=== PATIENT | female | born 1985 | race Caucasian/White ===

== ENCOUNTER 2019-01-07 06:23 | Day surgery (SDC) | payer OTHER ==
[2018-12-26 14:36] VITALS: BMI 19.8
[2019-01-07] MEDS ORDERED: BACITRACIN 15 GM TUBE TOPICAL OINTMENT ONE (07:21)
[2019-01-07] MEDS ORDERED: LIDOCAINE 1%/EPI 1:100000 (20 ML MULTI DOSE VIAL) ONE (07:21)
[2019-01-07] MEDS ORDERED: ONDANSETRON 4 MG/2 ML VIAL ONE ×2 (07:48→09:04)
[2019-01-07] MEDS ORDERED: MIDAZOLAM HCL 2 MG/2 ML SINGLE DOSE VIAL ONE ×2 (07:56)
[2019-01-07] MEDS ORDERED: PROPOFOL 20 ML ONE ×3 (08:04→08:14)
[2019-01-07] MEDS ORDERED: LIDOCAINE 1%/EPI 1:100000 (20 ML MULTI DOSE VIAL) IJ ONE (08:06)
[2019-01-07] MEDS ORDERED: CLINDAMYCIN PHOSPHATE 600 MG/4 ML VIAL ONE (08:11)
[2019-01-07] MEDS ORDERED: CLINDAMYCIN 600 MG PREMIX BAG IVPB ONE (08:15)
[2019-01-07] MEDS ORDERED: KETOROLAC TROMETHAMINE 30 MG/1 ML VIAL ONE (09:04)
[2019-01-07] MEDS ORDERED: ONDANSETRON 4 MG/2 ML VIAL IVPB PRN (09:38)
[2019-01-07] MEDS ORDERED: oxyCODONE HCL 5 MG TABLET PO PRN ×2 (09:38)
[2019-01-07 09:43] VITALS: TEMP 97.9
[2019-01-07] MEDS ORDERED: LACTATED RINGERS SOLUTION 1,000 ML IV SCH (09:45)
[2019-01-07 10:01] VITALS: PULSE 92
[2019-01-07 10:50] VITALS: BP 112/67
--- NOTE | 2019-01-07 12:52 | OP ---
DATE OF OPERATION: 01/07/2019 PROCEDURE: Excisional biopsy of palpable back lesion. ATTENDING SURGEON: Kurt Barillas MD ANESTHESIA: Monitored sedation with a total of 20 mL of 1% lidocaine and 1:100,000 epinephrine injected locally into the area. DESCRIPTION: The patient is seen in the holding area. Risks, benefits, alternatives, and limitations of the operation understood, and agreed to proceed. The patient is given 600 mg of IV clindamycin preoperatively. She is brought to the operating room and placed in a left lateral decubitus position for access of an upper back lesion that is in the right subscapular tissue. The lesion is easily palpable. Once the patient is given sedation, it is injected with local anesthetic. It is prepped and draped in standard surgical fashion. A timeout is called. Patient, procedure, side, and site are verified. It should be noted that the timeout had been called prior to the injection. After waiting 10 minutes for the hemostatic effect of the local anesthetic, an incision is made along the long axis of this lesion. Dissection is then carried through the subcutaneous tissue down to the level of the muscular fascia. It is clear that the lesion is palpable in the intramuscular space, not in the subcutaneous space. The muscle fibers are then spread along their long axis. Hemostasis is achieved using Bovie cautery and the lesion is able to be dissected from the surrounding tissue grossly. The lesion is an intramuscular lesion that is oriented along the long axis of the muscle fibers of latissimus dorsi muscle. It appears to be a muscular mass and not a lipoma; however, the lesion is sent to Pathology to be certain. The incision is slightly extended cephalad to access the full extent of the lesion, which is able to be dissected from the surrounding normal muscle fibers. Once the lesion has been excised in its entirety, an areolar plane is able to be dissected the lesion, differentiating it from the normal muscle fibers on either side. The lesion is sent for pathology. Hemostasis is achieved. The wound is copiously irrigated with normal saline. Further exploration is performed to assure that there is no residual mass. I am not able to express or palpate any additional mass within the incision. The muscular fibers are re-repaired to one another with a running 2-0 Vicryl suture as they were along their length and not divided. The skin is then approximated with a series of interrupted buried deep dermal 3-0 Monocryl sutures followed by running subcuticular 3-0 Monocryl suture. Steri-Strips are applied. Dressing is applied with 4 x 4 and Hypafix tape. Patient awoke from anesthesia, having tolerated the procedure well, transferred to recovery without complication. Gerardo WILSON/[id number]
--- NOTE | 2019-01-10 14:20 | PATH ---
Surgical Pathology Report Patient Name: LISA GONZALES [facility]. Rec. #: [id number] /Age/Gender: 1985 (Age: 33) / F Account: [id number] Location: [facility] AMBULATORY Taken: 01/07/2019 Received: 01/07/2019 Reported: 01/10/2019 Physicians: Kurt Barillas Specimen(s) Received MASS BACK Clinical History Back lipoma, benign lipomatous neoplasm of skin Final Diagnosis MASS, BACK, EXCISION: CAPILLARY HEMANGIOMA. (SEE NOTE). Note: Immunohistochemical stains performed in [place], [place] ([id number]) show the following results: the lesional cells are positive for CD34, CD31 and Factor VIII while negative for HHV-8. These findings support the diagnosis. Electronically Signed Nannette Baig M.D. Gross Description Received in formalin labeled "mass of back," is a 5.2 x 1.9 x 0.8 cm brown-bettencourt, unoriented portion of soft tissue. There is no skin identified. The specimen is inked green and serially sectioned. Sectioning reveals rogel-brown, mottled parenchyma. Sandfill Operator sections are sequentially submitted in 3 cassettes. /01/08/2019 saudi/01/08/2019
== END 2019-01-07 10:50 | disposition home or self-care (01) ==
LOC: FASU 06:23
PROVIDERS: ATTEND Plastic Surgery
PROC: 0KBF0ZZ Excision of Right Trunk Muscle, Open Approach (ICD-10-PCS; principal; 2019-01-07 08:00)
DX: D18.09 Hemangioma of other sites (principal)
CPT/HCPCS: 81025; 88305-TC

== ENCOUNTER 2021-01-11 04:38 | Day surgery (SDC) | payer OTHER ==
[2021-01-06 17:27] VITALS: BMI 21.4
[2021-01-11] MEDS ORDERED: MIDAZOLAM HCL 2 MG/2 ML SINGLE DOSE VIAL ONE (10:44)
[2021-01-11] MEDS ORDERED: LIDOCAINE 1%/EPI 1:100000 (20 ML MULTI DOSE VIAL) ONE (11:11)
[2021-01-11] MEDS ORDERED: LIDOCAINE 1%/EPI 1:100000 (20 ML MULTI DOSE VIAL) IJ ONE (11:52)
[2021-01-11] MEDS ORDERED: BUPIVACAINE HCL/PF 0.5% (5MG/ML) 10 ML VIAL IJ ONE (11:52)
[2021-01-11] MEDS ORDERED: BUPIVACAINE HCL/PF 0.5% (5MG/ML) 10 ML VIAL ONE (12:05)
[2021-01-11 13:42] VITALS: BP 104/69; PULSE 89; TEMP 98
== END 2021-01-11 13:43 | disposition home or self-care (01) ==
LOC: JASU-SURG 04:38
PROVIDERS: ATTEND Podiatrist Foot Surgery
PROC: 6A550Z2 Pheresis of Platelets, Single (ICD-10-PCS; 2021-01-11)
PROC: 0JNQ0ZZ Release Right Foot Subcutaneous Tissue and Fascia, Open Approach (ICD-10-PCS; principal; 2021-01-11 11:00)
DX: M72.2 Plantar fascial fibromatosis (principal)
CPT/HCPCS: 0232T; 28060; 81025